=== PATIENT | male | born 1975 | race Caucasian/White ===

== ENCOUNTER 2018-01-03 11:40 | Emergency (ER) | payer OTHER ==
[2018-01-03 11:49] VITALS: BP 161/110
[2018-01-03] MEDS ORDERED: Tetan/Diph/Pertus SYR(Tdap)* 0.5 ML SYR(BOOSTRIX) use SYR IM ONE (11:57)
[2018-01-03] MEDS ORDERED: HYDROcodone/ACETAMIN 5-325 MG* 1 TAB PO ONE (12:05)
[2018-01-03] MEDS ORDERED: Ibuprofen TAB* 400 MG PO ONE (12:05)
--- NOTE | 2018-01-03 12:18 | ED ---
Upper Extremity Pain - HPI Summary HPI Summary: Rt hand dominant presents with left index finger injury prior to arrival. He reports he was drilling through bookshelf when he drilled through his finger. Reports a lot of blood when this first happened however he applied pressure and elevated and bleeding has stopped since. He called 911 as he was home alone and they arrived on the scene to apply a dressing. He declined ambulance and his drove him here today. He is unsure of his immunizationswill post tetanus today. Additionally he reports he's been "a lot of pain"throbbing despite elevating his finger. He took 2 ibuprofen prior to arrival but would like something extra for pain at this point in time. Denies numbness tingling or weakness. 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 - History of Current Complaint Chief Complaint: EDLacSutureRecheck Stated Complaint: LT INDEX FINGER INJURY Time Seen by Provider: 01/03/18 11:56 Hx Obtained From: Patient, Family/Assembly Line Inspector - Allergies/Home Medications Allergies/Adverse Reactions: Allergies Allergy/AdvReac Type Severity Reaction Status Date / Time No Known Allergies Allergy Verified 01/03/18 12:21 PMH/Surg Hx/FS Hx/Imm Hx Previously Healthy: Yes Endocrine/Hematology History: Denies: Hx Anticoagulant Therapy, Hx Blood Disorders, Autoimmune Disease - Immunization History Immunizations Up to Date: Unable to Obtain/Confirm Infectious Disease History: No Infectious Disease History: Denies: Hx of Known/Suspected MRSA, Traveled Outside the [place] in Last 30 Days - Family History Known Family History: Positive: None - Social History 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 Lives: With Family Alcohol Use: Daily - 2 beers Substance Use Type: Reports: Marijuana - occasionally Hx Tobacco Use: No Smoking Status (MU): Never Smoked Tobacco Review of Systems Constitutional: Negative Negative: Fever, Chills, Fatigue Positive: no symptoms reported Positive: Myalgia Skin: Other - lac Neurological: Negative Positive: Anxious All Other Systems Reviewed And Are Negative: Yes Physical Exam Triage Information Reviewed: Yes Vital Signs On Initial Exam: Initial Vitals Temp Pulse Resp BP Pulse Ox 97.2 F 81 20 161/110 98 01/03/18 11:45 01/03/18 11:45 01/03/18 11:45 01/03/18 11:45 01/03/18 11:45 Vital Signs Reviewed: Yes Appearance: Positive: Well-Appearing, Well-Nourished, Pain Distress Skin: Positive: Warm, Skin Color Reflects Adequate Perfusion, Dry - vertical lac over pad of finger Head/Face: Positive: Normal Head/Face Inspection Eyes: Positive: EOMI ENT: Positive: Hearing grossly normal Respiratory/Lung Sounds: Positive: Breath Sounds Present Cardiovascular: Positive: Pulses are Symmetrical in both Upper and Lower Extremities Musculoskeletal: Positive: Strength/ROM Intact - full resistance with Lt index finger w/o pain or weakness Neurological: Positive: Normal, Sensory/Motor Intact, Alert, Oriented to Person Place, Time, CN Intact II-III Psychiatric: Positive: Normal Procedures - Laceration/Wound Repair 1 Location: upper extremity - Lt index finger - distal palmar aspect Description: Linear Anesthesia: Digital, 1.0%, Lido - upon exploration, a clot was removed - bleeding - stopped w/ suture placement - no FB observed Length, Depth and Shape: 2cm x 3mm Betadine Prep?: Yes Irrigated w/ Saline (ccs): 60 - 60cc irrigation + hibaclens soak Laceration/Wound Explored: clean Closure: Single Layer Suture Type: Other - 5-0 ethilon Number of Sutures: 7 Layer Closure?: No Sterile Dressing Applied?: Yes - triple anbx ointment + gauze + coban - hemodynamically stable Diagnostics - Vital Signs Vital Signs Temp Pulse Resp BP Pulse Ox 01/03/18 11:45 97.2 F 81 20 161/110 98 - Laboratory Lab Statement: Any lab studies that have been ordered have been reviewed, and results considered in the medical decision making process. Re-Evaluation - Re-Evaluation First Eval Change: Improved - pt reports pain improved once ibuprofen took effect but is concerned he may be sore at night for sleeping - requesting pain med to sleep if pain returns Course/Dx - Course Course Of Treatment: XR: no FB, no fx. Pt's lac repaired. Given the fact that he is a musican, he would like f/u w/ a hand specailist- referral made. Wound care also discussed w/ and pt who agree w/ plan. Danger s/sx also reviewed. - Diagnoses Provider Diagnoses: Laceration of left index finger Discharge - Sign-Out/Discharge Documenting (check all that apply): Patient Departure - Discharge Plan Condition: Stable Disposition: HOME Prescriptions: traMADol TAB* [Ultram*] 50 mg PO Q12H PRN #6 tab MDD 2 PRN Reason: Pain Patient Education Materials: Care For Your Stitches (ED), Finger Laceration (ED ) Referrals: Sixto Garza MD [Medical Doctor] - Additional Instructions: Keep Dressing clean and dry and in place for the next 48 hours. After that time you may remove dressing, gently wash wound with soap and water, rinse well and pat dry with clean cloth. Reapply triple antibiotic ointment and clean gauze dressing. Continue this daily until sutures are removed. Call hand specialist today to schedule wound recheck and suture removal in 10-14 days. In the meantime, rest, ice, elevate and take ibuprofen (600-800mg per dose woith food) alternating with acetaminophen extra strength as needed for pain. * If you develop redness, swelling, streaking, purulent drainage, fevers or chills, seek medical attention sooner or return to the emergency department. - Billing Disposition and Condition Condition: STABLE Disposition: Home
--- NOTE | 2018-01-03 13:26 | RAD ---
HISTORY: LT INDEX FINGER - DRILLED THROUGH PAD COMPARISONS: None VIEWS: 3 , Frontal, lateral, and oblique views of the second digit of the left hand FINDINGS: BONE DENSITY: Normal. BONES: There is no displaced fracture. JOINTS: There is no arthropathy. ALIGNMENT: There is no dislocation. SOFT TISSUES: Unremarkable. OTHER FINDINGS: None. IMPRESSION: NO ACUTE OSSEOUS INJURY. IF SYMPTOMS PERSIST, RECOMMEND REPEAT IMAGING.
== END 2018-01-03 15:01 | disposition home or self-care (01) ==
LOC: ED 11:40
DX: S61.211A Laceration without foreign body of left index finger without damage to nail, initial encounter (principal); W29.8XXA Contact with other powered hand tools and household machinery, initial encounter; Y93.89 Activity, other specified; Y92.9 Unspecified place or not applicable; Z23 Encounter for immunization
CPT/HCPCS: 12001; 73140; 90471; 90715; 99283; A9270-GY

== ENCOUNTER 2018-01-07 09:16 | Emergency (ER) | payer OTHER ==
--- OUTSIDE RECORDS SUMMARY | 2018-01-07 09:28 | XMS REPORT ---
:1975 External Reference #:[id number] Author Organization [employer] Address [address] [place] [address] [place] [address] Phone [phone] Care Team Providers Name Role Phone Patient's Choice Primary Care Physician Unavailable Payers Type Date Identification Numbers Payment Provider Subscriber Commercial Policy Number: [id number] [employer] Neema Heatonberg PayID: [id number] [address] [place] [address] Problems Description No Information Family History Date Family Member(s) Problem(s) Comments General Hypertension mother,father,sister Social History Type Date Description Comments Lives With Spouse 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 four times a day x 5 days Hydrocodone Active Tablets 5-300mg 14tabs 1 po S61.211A Laly Bitartrate/Acet 018 q6hr prn Nicolasa Wilcox aminophen pain Escitalopram 00000 Active Tablets 10mg 1 by Unknown Oxalate 000 mouth every day Alprazolam 0 Active Tablets 0.5mg prn Unknown 000 Vital Signs Date Vital Result Comment 01/05/2018 Height 69.5 inches 5'9.50" Weight 166.00 lb Heart Rate 84 /min BP Systolic Sitting 142 mmHg BP Diastolic Sitting 108 mmHg Body Temperature 97.3 F Pain Level 8 BMI (Body Mass Index) 24.2 kg/m2 Results Description No Information Procedures Description No Information Plan of Care Future Appointment(s):01/12/2018 11:00 am - Laly Wilcox M.D. at [facility]01/13/2018 4:00 pm - Radha Cuevas MD at [facility] - Lsjkwboff63/25/2018 - Laly Wilcox M.D.S61.211A Laceration w/o fb of l idx fngr w/o damage to nail, initNew Medication:Cephalexin 500 mgHydrocodone Bitartrate/Acetaminophen 5-300 mgFollow up:Follow up: 1 weekRecommendations:warm soapy soaks twice daily for 10 min, cover with a dry bandage
[2018-01-07] MEDS ORDERED: Sulfamethox/Trimethoprim DS 800/160* TAB PO ONE (10:00)
--- NOTE | 2018-01-07 10:04 | ED ---
Skin Complaint - HPI Summary HPI Summary: Patient is a 42 y/o M w/ c/o possible infection at left index finger. He states that he accidentally drilled this finger four days ago, received sutures for this injury. He followed up with Dr. Wilcox and was placed on cephalexin for the injury. He states that the pain from the injury had lessened significantly for the past few days but reports that he awoke this morning at 0500 with increased pain and increased erythema at this finger. He is concerned that the site of injury is infected. Patient states that the area is painful "in a new way". Discharge at the site is denied. 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 On triage, pain is rated 5/10, nothing is reported to aggravate/alleviate Sx. Home medications and allergies are reviewed. - History of Current Complaint Chief Complaint: EDLacSutureRecheck Time Seen by Provider: 01/07/18 09:46 Stated Complaint: POSS INFECTION Hx Obtained From: Patient Onset/Duration: Started Hours Ago - onset 0500 today, Still Present Skin Exposure Onset/Duration: Hours Ago - onset of present Sx, Days Ago - initial injury was four days ago Timing: Constant, Lasting Hours - onset 0500 today Current Severity: Moderate - 5/10 Pain Intensity: 5 Pain Scale Used: 0-10 Numeric - 5/10 Skin Location: Other: - left index finger Character: Redness, Painful Aggravating Symptom(s): Nothing Alleviating Symptom(s): OTC Meds - hydrocodone Associated Signs & Symptoms: Negative - Allergy/Home Medications Allergies/Adverse Reactions: Allergies Allergy/AdvReac Type Severity Reaction Status Date / Time No Known Allergies Allergy Verified 01/07/18 09:22 Home Medications: Home Medications ALPRAZolam TAB* [Xanax TAB*] 0.5 mg PO Q8H PRN 01/07/18 [History Confirmed 01/07] Escitalopram Oxalate [Lexapro 10 mg] 10 mg PO DAILY 01/07/18 [History Confirmed 01/07/18] Hydrocodone/Acetaminophen [Hydrocodone/Acetaminophen 5-325 mg] 1 tab PO Q4HR PRN 01/07/18 [History Confirmed 01/07/18] PMH/Surg Hx/FS Hx/Imm Hx Endocrine/Hematology History: Denies: Hx Anticoagulant Therapy, Hx Blood Disorders Sensory History: Denies: Hx Legally Blind, Hx Deafness Opthamlomology History: Denies: Hx Legally Blind EENT History: Denies: Hx Deafness Infectious Disease History: No Infectious Disease History: Denies: Hx of Known/Suspected MRSA, Traveled Outside the [place] in Last 30 Days - Family History Known Family History: Negative: Blood Disorder - Social History Alcohol Use: Daily - 2 beers Substance Use Type: Reports: Marijuana - occasionally Hx Tobacco Use: No Smoking Status (MU): Never Smoked Tobacco Review of Systems Negative: Fever - on vitals, temp is 97.8 F Positive: Other - erythema and pain at left index finger, no discharge All Other Systems Reviewed And Are Negative: Yes Physical Exam - Summary Physical Exam Summary: Appearance: Well appearing, no pain distress Skin: warm, dry, reflects adequate perfusion; left index distal and middle phalanx with erythema and swelling. No neurovascular deficit, no discharge. Head/face: normal Eyes: EOMI, JAMARCUS ENT: normal Neck: supple, non-tender Respiratory: CTA, breath sounds present Cardiovascular: RRR, pulses symmetrical Abdomen: non-tender, soft Bowel: present Musculoskeletal: normal, strength/ROM intact Neuro: normal, sensory motor intact, A&Ox3 Triage Information Reviewed: Yes Vital Signs On Initial Exam: Initial Vitals Temp Pulse Resp BP Pulse Ox 97.8 F 75 16 145/91 98 01/07/18 09:18 01/07/18 09:18 01/07/18 09:18 01/07/18 09:18 01/07/18 09:18 Vital Signs Reviewed: Yes Diagnostics - Vital Signs Vital Signs Temp Pulse Resp BP Pulse Ox 01/07/18 09:18 97.8 F 75 16 145/91 98 - Laboratory Lab Statement: Any lab studies that have been ordered have been reviewed, and results considered in the medical decision making process. Course/Dx - Course Course Of Treatment: Patient is a 42 y/o M w/ c/o possible infection at left index finger. He states that he accidentally drilled this finger four days ago, received sutures for this injury. He followed up with Dr. Wilcox and was placed on cephalexin for the injury. He states that the pain from the injury had lessened significantly for the past few days but reports that he awoke this morning at 0500 with increased pain and increased erythema at this finger. He is concerned that the site of injury is infected. Patient states that the area is painful "in a new way". Discharge at the site is denied. On physical exam, left index distal and middle phalanx with erythema and swelling is noted. No neurovascular deficit, no discharge. During ED course, patient was given Bactrim. Bacitracin ointment was applied to area. New dressing was applied as well. Wound culture was taken as well. Patient was discharged to home and instructed to return to ED for IV antibiotics if erythema spread to proximal phalanx in the next 24-48 hours. Otherwise, patient will follow up with Dr. Wilcox in two days. Patient is agreeable with this plan. Dx of cellulitis of left index finger and encounter for wound recheck. - Differential Diagnoses - Skin Complaint Differential Diagnoses: Cellulitis - Diagnoses Provider Diagnoses: Cellulitis of left index finger, Encounter for wound re-check Discharge - Sign-Out/Discharge Documenting (check all that apply): Patient Departure - discharge - Discharge Plan Condition: Stable Disposition: HOME Prescriptions: Sulfamethox/Trimethoprim DS* [Bactrim DS 800/160 TAB*] 1 tab PO BID #20 tab Patient Education Materials: Cellulitis (ED) Referrals: Laly Wilcox MD [Medical Doctor] - 2 Days Additional Instructions: RETURN TO EMERGENCY DEPARTMENT IF REDNESS SPREADS TO PROXIMAL PHALANX IN THE NEXT 24-[address]LLOW UP WITH DR. WILCOX ON TUESDAY. - Billing Disposition and Condition Condition: STABLE Disposition: Home - Attestation Statements Document Initiated by Zakiibbradley: Yes Documenting Scribe: Christiano Soto Provider For Whom Flavio is Documenting (Include Credential): Dhaval Pimentel MD Scribe Attestation: Crhistiano Lopez , scribed for Dhaval Pimentel MD on 01/07/18 at 1213. Scribe Documentation Reviewed: Yes Provider Attestation: The documentation as recorded by the Christiano león accurately reflects the service I personally performed and the decisions made by , Dhaval Pimentel MD
[2018-01-07 10:29] VITALS: BP 142/98
== END 2018-01-07 10:28 | disposition home or self-care (01) ==
LOC: ED 09:16
DX: S61.211D Laceration without foreign body of left index finger without damage to nail, subsequent encounter (principal); L03.012 Cellulitis of left finger; W27.8XXD Contact with other nonpowered hand tool, subsequent encounter
CPT/HCPCS: 87070; 87077; 87205; 87640; 87641; 99282; A9270-GY

== ENCOUNTER 2018-01-08 15:49 | Emergency (ER) | payer OTHER ==
[2018-01-08 16:25] VITALS: BP 139/97
--- NOTE | 2018-01-08 16:38 | UC ---
Upper Extremity HPI - HPI Summary HPI Summary: 42 yo patient who had a left index finger injury, sustained last week while using a power drill and treated in [facility] [place] [facility] with bactrim after treatment failure with keflex when originally seen by Dr Blue for suture of his wound; states he wants a few more pain killers , only 2 left , Needs for sleep. Pt given NORCO. Patient is taking alprazolam, dextroampetamine, trazodone and escitalopram. - History of Current Complaint Chief Complaint: UCUpperExtremity Stated Complaint: LEFT HAND POINTER FINGER INJURY Time Seen by Provider: 01/08/18 16:31 Hx Obtained From: Patient ?: No Onset/Duration: Sudden Onset, Lasting Hours Severity Initially: Mild Severity Currently: Moderate Pain Intensity: 7 Location Of Pain: Is Discrete @ - left index Aggravating Factor(s): Nothing Alleviating Factor(s): Nothing Associated Signs And Symptoms: Positive: Swelling, Redness - Risk Factors DVT Risk Factors: Negative Septic Arthritis Risk Factor: Negative Compartment Syndrome Risk Factors: Pain - Allergies/Home Medications Allergies/Adverse Reactions: Allergies Allergy/AdvReac Type Severity Reaction Status Date / Time No Known Allergies Allergy Verified 01/08/18 16:26 PMH/Surg Hx/FS Hx/Imm Hx Psychological History: Anxiety, Depression Other History Of: Negative For: Anticoagulant Therapy - Surgical History Surgical History: Yes Surgery Procedure, Year, and Place: right foot surgery. right hand surgery - Family History Known Family History: Positive: Hypertension Negative: Blood Disorder - Social History Alcohol Use: Daily Substance Use Type: Marijuana Smoking Status (MU): Never Smoked Tobacco Review of Systems Musculoskeletal: Edema, Other: - erythema All Other Systems Reviewed And Are Negative: Yes Physical Exam - Summary Physical Exam Summary: mild erythema on distal aspect of left index, minimal discharge on proximal aspect of wound, which is longitudinal on ventral aspect of finger, sutures in place. Pulses are present, capillary refill is brisk Triage Information Reviewed: Yes Appearance: Well-Appearing, No Pain Distress, Well-Nourished Vital Signs: Initial Vital Signs Temp 98.8 F 01/08/18 16:19 Pulse 86 01/08/18 16:19 Resp 16 01/08/18 16:19 BP 139/97 01/08/18 16:19 Pulse Ox 98 01/08/18 16:19 Vital Signs Reviewed: Yes Eyes: Positive: Conjunctiva Clear ENT: Positive: Hearing grossly normal Neck: Positive: Supple, Nontender Respiratory: Positive: Chest non-tender, Lungs clear, Normal breath sounds, No respiratory distress Cardiovascular: Positive: RRR, No Murmur, Pulses Normal, Brisk Capillary Refill Upper Extremity Course/Dx - Course Course Of Treatment: patient states swelling and redness have decreased after starting bactrim, he took dose 3 already. Cellulitis improving with current antibiotic. Patient voices concerns about scarring and possible dehiscence of stitches which were in place. Denies chills, fever or joint pain. Mild discharge of wound on proximal area of finger, continue cleansing and dressing, follow up with Dr. Blue as scheduled or sooner if improvement is not continues , provided with prescription of hibiclens and ibuprofen for pain as needed. - Differential Dx/Diagnosis Provider Diagnoses: wound check. Elevated BP without diagnosis of HTN. cellulitis Discharge - Sign-Out/Discharge Documenting (check all that apply): Patient Departure All imaging exams completed and their final reports reviewed: No Studies - Discharge Plan Condition: Stable Disposition: HOME Patient Education Materials: Cellulitis (ED), Chlorhexidine (On the skin) Referrals: Radha Cuevas MD [Primary Care Provider] - - Billing Disposition and Condition Condition: STABLE Disposition: Home
== END 2018-01-08 17:28 | disposition home or self-care (01) ==
LOC: UCEAST 15:49
DX: Z48.00 Encounter for change or removal of nonsurgical wound dressing (principal); R03.0 Elevated blood-pressure reading, without diagnosis of hypertension; L03.012 Cellulitis of left finger
CPT/HCPCS: 99212; G0463

== ENCOUNTER → 2018-12-12 11:56 | Emergency (ER) | payer OTHER ==
[2018-12-12 12:06] VITALS: BP 130/97
--- NOTE | 2018-12-12 12:28 | UC ---
Lower Extremity/Ankle HPI - HPI Summary HPI Summary: 43 yo male presents with LEFT great toe pain. He tells me that last night he was cracking his toes and about 20min after he cracked his left big toe, he developed pain the MTP. He took ibuprofen and pain improved, but since that time has been painful to walk and weight bear. - History of Current Complaint Chief Complaint: UCLowerExtremity Stated Complaint: TOE PAIN Time Seen by Provider: 12/12/18 12:27 Hx Obtained From: Patient Onset/Duration: Sudden Onset Severity Initially: Severe Severity Currently: Moderate Pain Intensity: 7 Pain Scale Used: 0-10 Numeric - Allergies/Home Medications Allergies/Adverse Reactions: Allergies Allergy/AdvReac Type Severity Reaction Status Date / Time No Known Allergies Allergy Verified 12/12/18 12:07 PMH/Surg Hx/FS Hx/Imm Hx Psychological History: Anxiety, Depression Other History Of: Negative For: Anticoagulant Therapy - Surgical History Surgical History: Yes Surgery Procedure, Year, and Place: right foot surgery. right hand surgery - Family History Known Family History: Positive: Hypertension Negative: Blood Disorder - Social History Occupation: Employed Full-time Lives: With Family Alcohol Use: Daily Substance Use Type: Marijuana Smoking Status (MU): Never Smoked Tobacco Review of Systems All Other Systems Reviewed And Are Negative: No Constitutional: Positive: Negative Skin: Positive: Negative Respiratory: Positive: Negative Cardiovascular: Positive: Negative Musculoskeletal: Positive: Other: - Left great toe pain Neurological: Positive: Negative Psychological: Positive: Negative Physical Exam - Summary Physical Exam Summary: GENERAL: NAD. WDWN. No pain distress. SKIN: No rashes, sores, lesions, or open wounds. CHEST: No accessory muscle use. Breathing comfortably and in no distress. CV: Pulses intact PT and DP. Cap refill <2seconds MSK: LEFT GREAT TOE: FROM, pain with dorsiflexion at MTP. NTTP. No erythema. No edema or obvious bony deformities. NEURO: Alert. Sensations intact and symmetric B/L LEs PSYCH: Age appropriate behavior. Triage Information Reviewed: Yes Vital Signs: Initial Vital Signs Temp 97.8 F 12/12/18 12:02 Pulse 72 12/12/18 12:02 Resp 18 12/12/18 12:02 BP 130/97 12/12/18 12:02 Pulse Ox 99 12/12/18 12:02 Vital Signs Reviewed: Yes Diagnostics - Radiology XR Radiology Interpretation Completed By: Radiologist Summary of Radiographic Findings: IMPRESSION: OSTEOARTHRITIS. NO ACUTE OSSEOUS INJURY. IF SYMPTOMS PERSIST, RECOMMEND REPEAT IMAGING. Lower Extremity Course/Dx - Course Course Of Treatment: Suspect strain/tendinitis from cracking his toes. Advised to rest, ice, and elevate his foot Use post op shoe and crutches as needed for comfort Continue ibuprofen as directed for pain - Differential Dx/Diagnosis Provider Diagnosis: Toe tendinitis Discharge ED - Sign-Out/Discharge Documenting (check all that apply): Patient Departure All imaging exams completed and their final reports reviewed: Yes - Discharge Plan Condition: Stable Disposition: HOME Patient Education Materials: Tendinitis (ED), Metatarsalgia (DC) Referrals: Radha Cuevas MD [Primary Care Provider] - Additional Instructions: If you develop a fever, shortness of breath, chest pain, new or worsening symptoms - please call your PCP or go to the ED immediately. Your blood pressure was slightly elevated at todays visit. Please see your primary provider within 4 weeks for recheck and re-evaluation. 1) Your X-Ray was normal today 2) Your exam does not appear consistent with gout 3) I suspect you strained the tendon overlying your big toe joint. Please rest, ice, and elevate the area to decrease pain and inflammation. Use the crutches and post-op shoe as needed for comfort. 4) May continue taking ibuprofen/naproxen as directed for discomfort - Billing Disposition and Condition Condition: STABLE Disposition: Home - Attestation Statements Provider Attestation: Patient not seen by me I was available for consult Chart reviewed
== END | disposition home or self-care (01) ==
LOC: UCEAST 11:56
DX: M77.8 Other enthesopathies, not elsewhere classified (principal); F41.9 Anxiety disorder, unspecified; F32.9 Major depressive disorder, single episode, unspecified
CPT/HCPCS: 99213; G0463